=== PATIENT | male | born 1955 | race African-American/Black ===

== ENCOUNTER → 2016-05-05 | Outpatient (CLI) | payer OTHER ==
[~2016-05-05] MED LIST: CETI10TA22 PO; MONT10TA9 PO; OMEP20CA9 PO; TIZA4TAB PO
--- NOTE | 2016-05-06 02:29 | PAIN ---
DATE OF SERVICE: 05/05/2016 INITIAL CONSULTATION CHIEF COMPLAINT: Low and mid back pain. HISTORY OF PRESENT ILLNESS: This is a 60-year-old male who presents with history of pain in the mid back, as well as the low back for about a year, worse over the past 3 months or so. The patient reports that the pain has been increasing with activity especially bending and flexing, standing, walking and riding a car. The patient reports it is not a result of any specific injury or accident he is aware of, but it has gradually increased over time, it is now as a constant, stabbing pain between the shoulder blades as well as in the low back. The patient reports it awakens him from sleep at least twice a night, does not affect his bowel or bladder control or his ability to walk, but he is more painful with walking. The patient reports he is taking naproxen as well as tizanidine, both of which helped the pain to about 50% level, but do caused sedation both of them. The patient did have MRI scan of both the thoracic and lumbar spines on 04/16/2016 showing degenerative disk disease, noticed a disk bulge at T2-T3 with some associated neural foraminal narrowing bilaterally at that level. Also lumbar spine showing previous lumbar surgery, severe central spinal stenosis and bilateral foraminal stenosis at L3-L4 and L4-L5 with epidural soft tissue thickening on the right at L3-L4, bilateral L4 and L5 pedicle edema, probably due to abnormal stress, which was scan in 2010 as well. The patient reports he has not had any formal physical therapy. He does do some stretching and strengthening exercises on his own at home and is very jehovah's witness about this. 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 The patient reports his disability rating from 0 to 10, 10 being the worst, is 10 with family and home responsibilities, 10 with occupation, 6 with recreation and social activity and sexual behavior and 0 with self care and life support activities. The patient reports the pain is radiating to some extent bilaterally into the shoulder blades as well as in the bilateral lower extremities from the low back, but the most significant pain is in his right side of the upper back radiating into the right side of the shoulder blade with increased use of his upper extremities, weightbearing with his upper extremities and holding objects or reaching forward. PAST MEDICAL HISTORY: Significant for gastroesophageal reflux and arthritis. PREVIOUS SURGERY: Include lumbar laminectomy in 2010 with fusion, hemorrhoidectomy in the past, hernia repair, left knee surgery, left finger surgery and left cataract extraction in 2015. CURRENT MEDICATIONS: Include tizanidine, Zyrtec, omeprazole and montelukast. ALLERGIES: The patient has no known drug allergies. FAMILY HISTORY: Significant for cancers. The patient is unsure what type. 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 REVIEW OF SYSTEMS: The patient's review of systems is positive for those items mentioned in the history of present illness. All systems reviewed and otherwise negative. It is complete, full and well documented on the patient's chart. PHYSICAL EXAMINATION: VITAL SIGNS: Today, the patient's blood pressure is 116/71, pulse 82, respirations 16, temperature is 98.2 degrees Fahrenheit, height is 5 feet 7 inches and weighs 162 pounds. GENERAL: The patient is awake, alert, oriented, appropriate, very pleasant demeanor. HEENT: Shows normocephalic and atraumatic. Extraocular movements are intact and symmetrical. Oral cavity shows mucous membranes moist and pink. Dentition is intact. NECK: Shows anterior throat supple without palpable lymphadenopathy noted. Swallow reflex is symmetrical. CHEST: Shows normal on inspection. Breath sounds are clear to auscultation bilaterally. HEART: Shows S1 and S2 clear. ABDOMEN: Soft, nontender, nondistended. No palpable organomegaly is noted. No rebound or guarding demonstrated. BACK: The patient's back shows spine grossly in midline. Previously well-healed surgical scar is noted in the lumbar distribution. Normal-appearing thoracic kyphosis and mild flattening of lumbar lordotic curvature. Cervical lordotic curvature is normal in appearance as well. With palpation in the mid thoracic distribution, in the mid and upper thoracic spine, some significant tenderness over the areas just adjacent in the paraspinous musculature bilaterally in the upper distribution of the thoracic paraspinous muscles, slightly more on the right than the left, but without significant atrophy, hypertrophy, without trigger points. The patient shows good rotation and motion in both extension and flexion as well as lateral rotation of the thoracic and lumbar spine without significant increase in the pain. The patient's upper extremities show deep tendon reflexes at 2+ in the biceps and triceps tendons. 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 Shoulder shrug is strong and intact without loss of strength or resistance as is abduction of shoulder at 90 degrees without difficulty. Peripheral pulses are 2+ in the radial distribution. No peripheral edema is noted. No clubbing, no cyanosis. Lower extremities show deep tendon reflexes 2+ in the patellar and 1+ tendo-calcaneus tendons, but are equal. Motor exam is strong with 5/5 dorsiflexion, extension, quadriceps and hamstring flexion. Peripheral pulses are 1+ posterior tibial and dorsalis pedis pulses. No peripheral edema is noted. No clubbing, no cyanosis. Lower extremities are warm and dry to touch, equal in color and appearance. The patient is able to stand, stand on his toes without difficulty or loss of balance, able to heel-toe walk without difficulty, is not using any assistive devices to ambulate such as canes or walkers. IMPRESSION: 1. This is a 60-year-old male with approximately 1-year history of increasing pain, mid back, upper back as well as the low back. 2. The patient's MRI scan as noted, both thoracic and lumbar distributions. 3. Gastroesophageal reflux. 4. Arthritis. PLAN: Options were discussed with the patient including conservative medical management, physical therapy, interventional techniques and he is doing exercises on his own for the upper and lower back, which seems to help to some extent, but he would like to try interventional techniques. We discussed a thoracic epidural steroid injection at the T2-T3 level where he has evidence of disk bulging on the MRI scan with neural foraminal narrowing associated and the patient would like to proceed with this. We will wait for preauthorization from the patient's insurance provider and once this is obtained, we will have him return for a thoracic epidural steroid injection at that time. GUY ALONSO MD DR: EDMOND/cara JOB#: [id number] / [id number]
== END | disposition home or self-care (01) ==
LOC: PNCL 09:15
PROVIDERS: ATTEND Anesthesiology
DX: M54.5 Low back pain (principal); M54.2 Cervicalgia
CPT/HCPCS: 99214

== ENCOUNTER → 2016-05-13 | Outpatient (CLI) | payer OTHER ==
[~2016-05-13] MED LIST changes: +IOHEXOL 180 MG/ML 10 ML VIAL. ONE; +methylPREDNISolone ACETATE 40 MG/ML VIAL. ONE; +methylPREDNISolone ACETATE 80 MG/ML VIAL. ONE
--- NOTE | 2016-05-13 23:07 | PAIN ---
DATE OF SERVICE: 05/13/2016 DIAGNOSES: 1. Thoracic radiculopathy with thoracic degenerative disk disease. 2. Post-lumbar laminectomy syndrome. HISTORY OF PRESENT ILLNESS: The patient is a 60-year-old male who returns for followup status post initial evaluation and preauthorization for a thoracic epidural steroid injection. The patient returns today reporting still significant pain in the mid, upper back bilaterally for the past year, worse over the past several months. The patient reports it gets worse with activity, standing, walking, bending, flexing, often awakens him from sleep. The patient reports no motor or sensory loss, no bowel or bladder incontinence either, but significant pain again ranging from anywhere from 4-7 on a scale of 10, 7 without medication, 4 with medication. The patient reports constant aching across the mid upper back between the shoulder blades. Also some low back pain which is secondary. Patient reports no other complaints at this time. PHYSICAL EXAMINATION: VITAL SIGNS: Blood pressure 131/93, pulse 83, respirations 20, temperature 97.8 degrees Fahrenheit, weight is 156 pounds. GENERAL: The patient is awake, alert, oriented, appropriate, very pleasant demeanor. HEENT: Shows normocephalic, atraumatic. Extraocular movements intact and symmetrical. Oral cavity shows mucous membranes moist and pink. Dentition is intact. NECK: Shows anterior throat supple without palpable lymphadenopathy noted. Swallow reflex is symmetrical. Neck shows full rotation and motion of the cervical spine without difficulty. CHEST: Shows normal on inspection. Breath sounds clear to auscultation bilaterally. HEART: Shows S1 and S2 clear. ABDOMEN: Soft, nontender, nondistended. No palpable organomegaly is noted. No rebound or guarding demonstrated. BACK: Shows spine grossly midline. Lumbar distribution shows some well-healed surgical scarring. In the thoracic distribution there is mild to moderate tenderness in the mid upper back in the thoracic distribution of the spine in the paraspinous musculature bilaterally, right equal to left, but appears symmetrical without evidence of atrophy, hypertrophy on inspection. Muscle girth is normal on palpation and firm, again diffusely tender without significant radiation. The patient does show good rotation and motion of the upper back and thoracic spine as well as extension and flexion without significant difficulty. PLAN: Options were discussed with the patient. At this time, the patient's old chart was reviewed as his current medications regimen and updated. Current review of systems updated today as well. Plan on proceeding with a thoracic epidural steroid injection today with fluoroscopic guidance. Risks were again discussed including, but not limited to bleeding, infection, possibility of epidural hematoma and subsequent neurologic compromise, dural puncture, headaches, spinal cord and/or nerve damage, side effects of steroid medication and poor results regarding pain control. The patient understands and wishes to proceed. The patient will return to clinic in approximately 2 weeks for followup, was counseled on return appointment, activity level and side effects to be aware of. DIAGNOSIS: Thoracic radiculopathy with thoracic degenerative disk disease. PROCEDURE: Thoracic epidural steroid injection at the T4-5 level with fluoroscopic guidance under sterile prep and drape using local anesthesia. MEDICATIONS INJECTED: Depo-Medrol 120 mg plus 10 mL of preservative-free normal saline and 2 mL of Isovue contrast. CONDITION AT DISCHARGE: Stable. The patient tolerated the procedure well, had no complications. GUY ALONSO MD DR: EDMOND/cara JOB#: [id number] / [id number]
== END ==
LOC: PNCL 09:06
PROVIDERS: ATTEND Anesthesiology
DX: M51.14 Intervertebral disc disorders with radiculopathy, thoracic region (principal)
CPT/HCPCS: 62321; J1030; J1040

== ENCOUNTER → 2016-06-08 | Outpatient (CLI) | payer OTHER ==
--- NOTE | 2016-06-09 03:06 | PAIN ---
DATE OF SERVICE: 06/08/2016 PROGRESS NOTE DIAGNOSES: 1. Thoracic radiculopathy with thoracic degenerative disk disease. 2. Post-lumbar laminectomy syndrome. HISTORY OF PRESENT ILLNESS: The patient is a 60-year-old male who returns for followup status post thoracic epidural steroid injection x 1. The patient reports only small amount of decrease in pain in the mid upper back, the stabbing pain is still present across the shoulders and the upper back, rates as a 7 on a scale of 10, worse with sitting. The patient still continues to work, is on his feet most of his day, changing positions, staying very active, exercising as best he can. He is also doing some stretching exercises, putting some heat and ice packs on the upper mid back as well, which seems to help more with the heat, but doing both of these. The patient reports he has no new motor or sensory deficits or other complaints, still some pain across the low back, but mainly his chief complaint is across the shoulders as it was previously in the upper back. The patient reports no new motor or sensory deficits, no new changes. PHYSICAL EXAMINATION: VITAL SIGNS: The patient's blood pressure is 122/83, pulse 79, respirations 18, temperature 98.1 degrees Fahrenheit, weight is 155 pounds. GENERAL: The patient is awake, alert, oriented, appropriate, very pleasant demeanor. HEENT: Shows normocephalic and atraumatic. Extraocular movements are intact and symmetrical. Oral cavity shows mucous membranes moist and pink. Dentition is intact. NECK: Shows anterior throat supple without palpable lymphadenopathy noted. Swallow reflex is symmetrical. Neck shows full rotation of motion of cervical spine without difficulty or tenderness. CHEST: Shows normal on inspection. Breath sounds are clear to auscultation bilaterally. HEART: Shows S1 and S2 clear. ABDOMEN: Soft, nontender, nondistended. No palpable organomegaly is noted. No rebound or guarding demonstrated. BACK: Shows spine grossly in midline. Well-healed surgical scar is noted in the lumbar distribution. Thoracic spine shows [id number] tenderness with palpation in the mid and upper aspect of the rhomboid musculature and the paraspinous muscles, about the upper distribution of the rhomboid muscles, without specific radiation, just diffusely tender with palpation. No tenderness over the spinous processes themselves. The patient does show good rotation of motion of thoracic spine as well as extension and flexion without exacerbation of pain. PLAN: Options were discussed with the patient. The patient's old chart was reviewed as his current medications regimen and updated. Current review of systems updated today as well. We will proceed with a second thoracic epidural steroid injection today with fluoroscopic guidance. Risks were again discussed including, but not limited to bleeding, infection, possibility of epidural hematoma, subsequent neurologic compromise, dural puncture, headaches, spinal cord and/or nerve damage, side effects of steroid medication and poor results regarding pain control. The patient understands and wished to proceed. The patient will return to clinic in approximately 2 weeks for followup. He was counseled as to return appointment, activity level and side effects to be aware of. DIAGNOSES: Thoracic radiculopathy with thoracic degenerative disk disease. PROCEDURE: Thoracic epidural steroid injection with C-arm fluoroscopic guidance under sterile prep and drape in a translaminar approach at the T4-T5 level under local anesthesia. MEDICATIONS INJECTED: 120 mg of Depo-Medrol plus 5 mL of preservative-free normal saline and 2 mL of Isovue contrast. CONDITION AT DISCHARGE: Stable. The patient tolerated the procedure well, had no complications. GUY ALONSO MD DR: EDMOND/cara JOB#: [id number] / [id number]
== END | disposition home or self-care (01) ==
LOC: PNCL 09:02
PROVIDERS: ATTEND Anesthesiology
DX: M51.14 Intervertebral disc disorders with radiculopathy, thoracic region (principal)
CPT/HCPCS: 62321; J1030; J1040

== ENCOUNTER → 2016-10-20 | Outpatient (CLI) | payer OTHER | END | disposition home or self-care (01) | LOC: PNCL 10:56 | PROVIDERS: ATTEND Anesthesiology | DX: M51.36 Other intervertebral disc degeneration, lumbar region (principal); Z88.1 Allergy status to other antibiotic agents | CPT/HCPCS: 62323; J1030; J1040 ==

== ENCOUNTER → 2016-12-17 | Outpatient (CLI) | payer OTHER ==
--- NOTE | 2016-12-17 18:35 | PAIN ---
DATE OF SERVICE: 12/17/2016 DIAGNOSES: 1. Thoracic radiculopathy with thoracic degenerative disk disease. 2. Lumbar degenerative disk disease with post-lumbar laminectomy syndrome. HISTORY OF PRESENT ILLNESS: The patient is a 61-year-old male who returns for followup status post thoracic epidural steroid injections and one caudal epidural steroid injection, last seen 10/20/2016. The patient did very well after the caudal injection about 50% improvement overall. He has been able to increase his activity with greater ease and comfort. 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 He is walking a significant amount of his working day. The patient reports he did very well until the last 2-3 weeks, the pain began to return. The patient reports it is a 5 on a scale of 10 at all times and is a 5 on a scale of 10 today. Describes the pain as aching across the low back into the posterior gluteus, but mostly across the low back itself, again significantly reduced after last injection. The patient reports he is sleeping better at night. He feels much better with lying down or sitting anyway, much worse with standing and walking prolonged periods. No new motor or sensory deficits, no new bowel or bladder incontinence or other complaints. PHYSICAL EXAMINATION: VITAL SIGNS: The patient's blood pressure 129/92, pulse 76, respirations are 20, temperature is 97.9 degrees Fahrenheit. Weight 156 pounds. GENERAL: The patient is awake, alert, oriented, appropriate, very pleasant demeanor. HEENT: Head shows normocephalic, atraumatic. Extraocular movements are intact and symmetrical. Oral cavity, mucous membranes are moist and pink. NECK: Shows anterior throat supple. CHEST: Shows breath sounds clear to auscultation bilaterally. HEART: Shows S1 and S2 clear. ABDOMEN: Soft, nontender, nondistended. BACK: Shows spine grossly midline, well-healed surgical scars noted in the lumbar distribution. Lumbar paraspinous muscle shows some moderate tenderness with palpation only diffusely in the lower lumbar distribution without radiation. No tenderness over the sacrum or sacroiliac regions. The patient shows full rotational motion of lumbar spine both laterally as well as extension and flexion. EXTREMITIES: Lower extremities showed deep tendon reflexes 1+ in the patellar and tendocalcaneus tendons are equal. Motor exam is strong with 5/5 dorsiflexion and extension. Peripheral pulses are 2+ bilaterally. No edema is noted bilaterally in the lower extremities. Options were discussed with the patient and the patient's old chart was reviewed as his current medication regimen updated. Current review of systems updated today as well. We will proceed with a first in this series caudal epidural steroid injection with fluoroscopic guidance. Risks were again discussed including, but not limited to bleeding, infection, possibility of epidural hematoma, subsequent neurologic compromise, dural puncture, headaches, spinal cord and/or nerve damage, side effects of steroid medication and poor results regarding pain control. The patient understands and wishes to proceed. The patient will return to clinic in approximately 2 weeks for followup, was counseled on return appointment, activity level and side effects to be aware of. DIAGNOSIS: Lumbar degenerative disk disease with post-lumbar laminectomy syndrome. PROCEDURE: Caudal epidural steroid injection using C-arm fluoroscopic guidance under sterile prep and drape using local anesthetic. MEDICATION INJECTED: Total of 120 mg of Depo-Medrol plus 10 mL of preservative-free normal saline, 2 mL of Isovue for contrast. CONDITION AT DISCHARGE: Stable. The patient tolerated the procedure well, had no complications. GUY ALONSO MD DR: EDMOND/cara JOB#: [id number] / [id number]
== END | disposition home or self-care (01) ==
LOC: PNCL 08:40
PROVIDERS: ATTEND Nurse Anesthetist, Certified Registered
DX: M51.36 Other intervertebral disc degeneration, lumbar region (principal); M96.1 Postlaminectomy syndrome, not elsewhere classified; M51.14 Intervertebral disc disorders with radiculopathy, thoracic region; Z88.1 Allergy status to other antibiotic agents
CPT/HCPCS: 62323; J1030; J1040